=== PATIENT | male | born 1965 | race Caucasian/White ===

== ENCOUNTER 2017-03-02 21:25 | Emergency (ER) | payer SELFPAY ==
[~2017-03-02] VITALS: Ht 188 cm; Wt 115.0 kg
[2017-03-03 01:16] LABS: BASOPHILS # (AUTO) 0.03 K/uL (0.00-0.20); BASOPHILS % (AUTO) 0.5 % (0.0-2.0); EOSINOPHILS # (AUTO) 0.06 K/uL (0.00-0.70); EOSINOPHILS % (AUTO) 0.96 % (1.0-6.0); HEMATOCRIT 41.8 % (41-53); HEMOGLOBIN 14.2 g/dL (13.5-17.5); LYMPHOCYTES # (AUTO) 2.4 K/uL (1.0-4.8); MEAN CORPUSCULAR HEMOGLOBIN 31.2 pg (26.0-34.0); MEAN CORPUSCULAR VOLUME 92 fL (80-100); MONOCYTES # (AUTO) 0.6 K/uL (0.1-1.0); MONOCYTES % (AUTO) 8.9 % (2.0-9.0); NEUTROPHILS # (AUTO) 3.3 K/uL (1.8-7.7); NEUTROPHILS % (AUTO) 51.7 % (40.0-70.0); PLATELET COUNT (AUTO) 312 K/uL (150-450); RED BLOOD CELL COUNT(AUTO) 4.56 MIL/uL (4.50-5.90); RED CELL DISTRIBUTION WIDTH 12.8 % (11.5-14.5); WHITE BLOOD COUNT (AUTO) 6.4 K/uL (4.5-11.0)
[2017-03-03 01:24] LABS: ANION GAP 6 mmol/L (8-16); CALCIUM, TOTAL 9.3 mg/dL (8.8-10.5); CARBON DIOXIDE 28 mmol/L (22-29); CHLORIDE 100 mmol/L (98-107); CREATININE 0.77 mg/dL (0.60-1.30); GLOMERULAR FILTR. RATE CALC > 60 mL/min (>60); POTASSIUM 3.7 mmol/L (3.5-5.1); SODIUM SERUM 134 mmol/L (136-145); UREA NITROGEN, BLOOD 15 mg/dL (7-18)
[2017-03-03 01:34] LABS: ALANINE AMINOTRANSFERASE 33 U/L (12-78); ASPARTATE AMINOTRANSFERASE 26 U/L (15-37); BILIRUBIN,TOTAL 0.8 mg/dL (0.1-1.0); TOTAL PROTEIN, SERUM 7.2 g/dL (6.4-8.2)
[2017-03-03 03:13] VITALS: BP 119/70
== END 2017-03-03 03:32 | disposition home or self-care (01) ==
LOC: EMS 21:27
DX: F32.9 Major depressive disorder, single episode, unspecified (principal)
CPT/HCPCS: 36415; 80053; 80307; 85025; 99284; G0480

== ENCOUNTER 2017-03-03 15:55 | Emergency (ER) | payer MEDICARE ==
[~2017-03-03] VITALS: Ht 188 cm; Wt 113.6 kg
[2017-03-03 16:58] LABS: BASOPHILS # (AUTO) 0.07 K/uL (0.00-0.20); BASOPHILS % (AUTO) 1.1 % (0.0-2.0); EOSINOPHILS % (AUTO) 0 % (1.0-6.0); HEMATOCRIT 42.7 % (41-53); HEMOGLOBIN 14.4 g/dL (13.5-17.5); LYMPHOCYTES # (AUTO) 1.8 K/uL (1.0-4.8); LYMPHOCYTES % (AUTO) 28.5 % (22.0-44.0); MEAN CORPUSCULAR HEMOGLOBIN 29.7 pg (26.0-34.0); MEAN CORPUSCULAR HGB CONC 33.6 G/dL (31.0-37.0); MEAN CORPUSCULAR VOLUME 88 fL (80-100); MONOCYTES # (AUTO) 0.5 K/uL (0.1-1.0); MONOCYTES % (AUTO) 8.5 % (2.0-9.0); NEUTROPHILS # (AUTO) 3.8 K/uL (1.8-7.7); NEUTROPHILS % (AUTO) 61.9 % (40.0-70.0); PLATELET COUNT (AUTO) 186 K/uL (150-450); RED BLOOD CELL COUNT(AUTO) 4.83 MIL/uL (4.50-5.90); RED CELL DISTRIBUTION WIDTH 13.9 % (11.5-14.5)
[2017-03-03 17:13] LABS: ANION GAP 9 mmol/L (8-16); CALCIUM, TOTAL 9.3 mg/dL (8.8-10.5); CARBON DIOXIDE 23 mmol/L (22-29); CHLORIDE 106 mmol/L (98-107); CREATININE 1.09 mg/dL (0.60-1.30); GLOMERULAR FILTR. RATE CALC > 60 mL/min (>60); GLUCOSE,RANDOM 91 mg/dL (70-110); POTASSIUM 3.3 mmol/L (3.5-5.1); SODIUM SERUM 138 mmol/L (136-145); UREA NITROGEN, BLOOD 17 mg/dL (7-18)
[2017-03-03 17:20] LABS: ALANINE AMINOTRANSFERASE 17 U/L (12-78); ALBUMIN 4.3 g/dL (3.4-5.0); ALKALINE PHOSPHATASE 94 U/L (46-116); ASPARTATE AMINOTRANSFERASE 13 U/L (15-37); BILIRUBIN,TOTAL 0.8 mg/dL (0.1-1.0); TOTAL PROTEIN, SERUM 7.7 g/dL (6.4-8.2)
[2017-03-03] MEDS ORDERED: LORazepam 1 MG TABLET PO ONE (20:15)
[2017-03-03] MEDS ORDERED: POTASSIUM CHLORIDE 20 MEQ ER TABLET PO ONE (20:30)
[2017-03-03 21:04] VITALS: BP 121/63
== END 2017-03-03 21:06 | disposition home or self-care (01) ==
LOC: EMS 15:57
DX: F41.9 Anxiety disorder, unspecified (principal)
CPT/HCPCS: 36415; 80053; 85025; 99284; G0480

== ENCOUNTER 2017-03-31 12:38 | Inpatient (IN) | payer MEDICARE ==
[~2017-03-31] VITALS: Ht 188 cm; Wt 86.6 kg
[2017-03-31 16:25] VITALS: BP 119/75
[2017-03-31] MEDS ORDERED: ZOLPIDEM TARTRATE 10 MG TABLET PO PRN (16:45)
[2017-03-31] MEDS ORDERED: LORazepam 2 MG TABLET PO PRN (16:45)
[2017-03-31] MEDS ORDERED: QUEtiapine FUMARATE 100 MG TABLET PO PRN (16:45)
[2017-03-31] MEDS ORDERED: ASPI81 PO (16:55)
[2017-03-31] MEDS ORDERED: LORA10TA7 PO (16:55)
[2017-03-31] MEDS ORDERED: GEMF600T3 PO (16:55)
[2017-03-31] MEDS ORDERED: QUET100T PO (16:55)
[2017-03-31] MEDS ORDERED: METO50 PO (16:55)
[2017-03-31] MEDS ORDERED: CLOZ100 PO (16:55)
[2017-03-31] MEDS ORDERED: ESOM20CA31 PO (16:55)
[2017-03-31] MEDS ORDERED: DSS100 PO (16:55)
[2017-03-31] MEDS ORDERED: METOPROLOL TARTRATE 50 MG TABLET PO SCH (17:37)
[2017-03-31 18:12] VITALS: BP 127/85
[2017-03-31 18:13] VITALS: BP 127/85
[2017-03-31] MEDS ORDERED: INFLUENZA VIRUS VACCINE QVS 2017-18 (3YR+)/PF 60 MCG/0.5 ML SYRINGE IM ONE (18:30)
[2017-03-31] MEDS: QUEtiapine FUMARATE 100 MG TABLET PO SCH (18:31)
[2017-03-31] MEDS ORDERED: CloZAPine 100 MG TABLET PO ONE (21:00)
[2017-04-01 01:25] VITALS: BP 115/76
[2017-04-01] MEDS: GEMFIBROZIL 600 MG TABLET PO SCH ×2 (06:14→16:35)
[2017-04-01 08:40] VITALS: BP 138/72
[2017-04-01 08:49] LABS: BASOPHILS # (AUTO) 0.02 K/uL (0.00-0.20); BASOPHILS % (AUTO) 0.4 % (0.0-2.0); EOSINOPHILS % (AUTO) 0.04 % (1.0-6.0); HEMATOCRIT 42.9 % (41-53); HEMOGLOBIN 14.7 g/dL (13.5-17.5); LYMPHOCYTES # (AUTO) 1.2 K/uL (1.0-4.8); LYMPHOCYTES % (AUTO) 31.5 % (22.0-44.0); MEAN CORPUSCULAR HGB CONC 34.2 G/dL (31.0-37.0); MEAN CORPUSCULAR VOLUME 88 fL (80-100); MONOCYTES # (AUTO) 0.4 K/uL (0.1-1.0); MONOCYTES % (AUTO) 9.8 % (2.0-9.0); NEUTROPHILS # (AUTO) 2.3 K/uL (1.8-7.7); NEUTROPHILS % (AUTO) 58.3 % (40.0-70.0); PLATELET COUNT (AUTO) 179 K/uL (150-450); RED BLOOD CELL COUNT(AUTO) 4.89 MIL/uL (4.50-5.90); RED CELL DISTRIBUTION WIDTH 13.1 % (11.5-14.5); WHITE BLOOD COUNT (AUTO) 3.9 K/uL (4.5-11.0)
[2017-04-01] MEDS: ASPIRIN 81 MG CHEWABLE TABLET PO SCH (08:50)
[2017-04-01] MEDS: PANTOPRAZOLE SODIUM 40 MG DR TABLET PO SCH (08:50)
[2017-04-01] MEDS: METOPROLOL TARTRATE 50 MG TABLET PO SCH ×2 (08:50→16:34)
[2017-04-01] MEDS: DOCUSATE SODIUM 100 MG CAPSULE PO SCH (08:50)
[2017-04-01] MEDS: QUEtiapine FUMARATE 100 MG TABLET PO SCH ×2 (08:50→16:34)
[2017-04-01 09:09] LABS: ALANINE AMINOTRANSFERASE 17 U/L (12-78); ALBUMIN 3.6 g/dL (3.4-5.0); ANION GAP 14 mmol/L (8-16); ASPARTATE AMINOTRANSFERASE 14 U/L (15-37); BILIRUBIN,TOTAL 0.3 mg/dL (0.1-1.0); CALCIUM, TOTAL 8.6 mg/dL (8.8-10.5); CARBON DIOXIDE 21 mmol/L (22-29); CHLORIDE 105 mmol/L (98-107); CHOL/HDL RATIO 2.9 (4.2-7.3); CREATININE 0.86 mg/dL (0.60-1.30); GLOMERULAR FILTR. RATE CALC > 60 mL/min (>60); POTASSIUM 3.6 mmol/L (3.5-5.1); SODIUM SERUM 140 mmol/L (136-145); THYROID STIMULATING HORMONE 1.03 uIU/mL (0.36-3.74); TOTAL PROTEIN, SERUM 7.2 g/dL (6.4-8.2); UREA NITROGEN, BLOOD 17 mg/dL (7-18)
[2017-04-01 16:19] VITALS: BP 123/85
[2017-04-01] MEDS: CloZAPine 100 MG TABLET PO SCH (20:36)
[2017-04-02] MEDS: GEMFIBROZIL 600 MG TABLET PO SCH ×2 (06:24→16:32)
[2017-04-02 06:31] VITALS: BP 134/78
[2017-04-02 08:43] VITALS: BP 132/84
[2017-04-02] MEDS: QUEtiapine FUMARATE 100 MG TABLET PO SCH ×2 (09:02→16:33)
[2017-04-02] MEDS: METOPROLOL TARTRATE 50 MG TABLET PO SCH ×2 (09:02→16:33)
[2017-04-02] MEDS: DOCUSATE SODIUM 100 MG CAPSULE PO SCH (09:02)
[2017-04-02] MEDS: ASPIRIN 81 MG CHEWABLE TABLET PO SCH (09:03)
[2017-04-02] MEDS: PANTOPRAZOLE SODIUM 40 MG DR TABLET PO SCH (09:03)
[2017-04-02 16:09] VITALS: BP 130/87
[2017-04-02] MEDS: CloZAPine 100 MG TABLET PO SCH (20:52)
[2017-04-03] MEDS: GEMFIBROZIL 600 MG TABLET PO SCH ×2 (06:26→16:34)
[2017-04-03 06:33] VITALS: BP 107/70
[2017-04-03 08:40] VITALS: BP 110/78
[2017-04-03] MEDS: QUEtiapine FUMARATE 100 MG TABLET PO SCH ×2 (09:04→16:40)
[2017-04-03] MEDS: ASPIRIN 81 MG CHEWABLE TABLET PO SCH (09:04)
[2017-04-03] MEDS: METOPROLOL TARTRATE 50 MG TABLET PO SCH ×2 (09:04→16:40)
[2017-04-03] MEDS: DOCUSATE SODIUM 100 MG CAPSULE PO SCH (09:04)
[2017-04-03] MEDS: PANTOPRAZOLE SODIUM 40 MG DR TABLET PO SCH (09:04)
[2017-04-03 16:07] VITALS: BP 122/79
[2017-04-03] MEDS: CloZAPine 100 MG TABLET PO SCH (20:37)
[2017-04-04 04:48] VITALS: BP 133/81
[2017-04-04] MEDS: GEMFIBROZIL 600 MG TABLET PO SCH ×2 (06:35→16:27)
[2017-04-04] MEDS: DOCUSATE SODIUM 100 MG CAPSULE PO SCH (08:50)
[2017-04-04] MEDS: METOPROLOL TARTRATE 50 MG TABLET PO SCH ×2 (08:51→16:36)
[2017-04-04] MEDS: ASPIRIN 81 MG CHEWABLE TABLET PO SCH (08:51)
[2017-04-04] MEDS: QUEtiapine FUMARATE 100 MG TABLET PO SCH ×2 (08:51→16:36)
[2017-04-04] MEDS: PANTOPRAZOLE SODIUM 40 MG DR TABLET PO SCH (08:51)
[2017-04-04 09:04] VITALS: BP 127/89
[2017-04-04 16:28] VITALS: BP 125/80
[2017-04-04] MEDS: CloZAPine 100 MG TABLET PO SCH (20:36)
[2017-04-05 02:13] VITALS: BP 106/76
[2017-04-05] MEDS: GEMFIBROZIL 600 MG TABLET PO SCH ×2 (06:40→16:29)
[2017-04-05] MEDS: METOPROLOL TARTRATE 50 MG TABLET PO SCH ×2 (08:25→16:29)
[2017-04-05] MEDS: PANTOPRAZOLE SODIUM 40 MG DR TABLET PO SCH (08:25)
[2017-04-05] MEDS: ASPIRIN 81 MG CHEWABLE TABLET PO SCH (08:25)
[2017-04-05] MEDS: DOCUSATE SODIUM 100 MG CAPSULE PO SCH (08:25)
[2017-04-05] MEDS: QUEtiapine FUMARATE 100 MG TABLET PO SCH ×2 (08:25→16:29)
[2017-04-05 08:32] VITALS: BP 149/82
[2017-04-05 16:09] VITALS: BP 105/73
[2017-04-05 16:25] VITALS: BP 112/77
[2017-04-05 18:54] LABS: CLOZAPINE 198 ng/mL (350-650); CLOZAPINE & NORCLOZAPINE 272 ng/mL; NORCLOZAPINE 74 ng/mL (Not Estab.)
[2017-04-05] MEDS: CloZAPine 100 MG TABLET PO SCH (20:34)
[2017-04-06 00:30] VITALS: BP 116/71
[2017-04-06] MEDS: GEMFIBROZIL 600 MG TABLET PO SCH ×2 (06:45→16:34)
[2017-04-06 08:25] VITALS: BP 123/79
[2017-04-06] MEDS: DOCUSATE SODIUM 100 MG CAPSULE PO SCH (10:36)
[2017-04-06] MEDS: ASPIRIN 81 MG CHEWABLE TABLET PO SCH (10:36)
[2017-04-06] MEDS: PANTOPRAZOLE SODIUM 40 MG DR TABLET PO SCH (10:36)
[2017-04-06] MEDS: METOPROLOL TARTRATE 50 MG TABLET PO SCH ×2 (10:37→16:34)
[2017-04-06] MEDS: QUEtiapine FUMARATE 100 MG TABLET PO SCH ×2 (10:37→16:34)
[2017-04-06 16:05] VITALS: BP 122/85
[2017-04-06] MEDS: CloZAPine 100 MG TABLET PO SCH (20:45)
[2017-04-07 06:55] VITALS: BP 117/77
[2017-04-07] MEDS: GEMFIBROZIL 600 MG TABLET PO SCH ×2 (06:55→17:04)
[2017-04-07 08:36] VITALS: BP 117/76
[2017-04-07] MEDS: ASPIRIN 81 MG CHEWABLE TABLET PO SCH (09:02)
[2017-04-07] MEDS: PANTOPRAZOLE SODIUM 40 MG DR TABLET PO SCH (09:02)
[2017-04-07] MEDS: QUEtiapine FUMARATE 100 MG TABLET PO SCH ×2 (09:03→17:04)
[2017-04-07] MEDS: DOCUSATE SODIUM 100 MG CAPSULE PO SCH (09:03)
[2017-04-07] MEDS: METOPROLOL TARTRATE 50 MG TABLET PO SCH ×2 (09:03→17:04)
[2017-04-07 16:07] VITALS: BP 124/79
[2017-04-07] MEDS: CloZAPine 100 MG TABLET PO SCH (20:39)
[2017-04-08] MEDS: GEMFIBROZIL 600 MG TABLET PO SCH ×2 (06:38→16:27)
[2017-04-08 07:16] VITALS: BP 134/89
[2017-04-08 08:11] VITALS: BP 116/84
[2017-04-08] MEDS: DOCUSATE SODIUM 100 MG CAPSULE PO SCH (08:45)
[2017-04-08] MEDS: QUEtiapine FUMARATE 100 MG TABLET PO SCH ×2 (08:45→16:37)
[2017-04-08] MEDS: PANTOPRAZOLE SODIUM 40 MG DR TABLET PO SCH (08:45)
[2017-04-08] MEDS: ASPIRIN 81 MG CHEWABLE TABLET PO SCH (08:45)
[2017-04-08] MEDS: METOPROLOL TARTRATE 50 MG TABLET PO SCH ×2 (08:45→16:37)
[2017-04-08 16:40] VITALS: BP_SYST 118; BP_SYST 122; BP_DIAS 76
[2017-04-08] MEDS: CloZAPine 100 MG TABLET PO SCH (20:39)
[2017-04-09] MEDS: GEMFIBROZIL 600 MG TABLET PO SCH ×2 (06:00→16:36)
[2017-04-09 07:18] VITALS: BP 102/74
[2017-04-09 08:12] VITALS: BP 118/67
[2017-04-09] MEDS: ASPIRIN 81 MG CHEWABLE TABLET PO SCH (08:38)
[2017-04-09] MEDS: PANTOPRAZOLE SODIUM 40 MG DR TABLET PO SCH (08:38)
[2017-04-09] MEDS: METOPROLOL TARTRATE 50 MG TABLET PO SCH ×2 (08:38→16:36)
[2017-04-09] MEDS: QUEtiapine FUMARATE 100 MG TABLET PO SCH ×2 (08:38→16:36)
[2017-04-09] MEDS: DOCUSATE SODIUM 100 MG CAPSULE PO SCH (08:38)
[2017-04-09 16:11] VITALS: BP 112/69
[2017-04-09] MEDS: CloZAPine 100 MG TABLET PO SCH ×2 (21:00→22:26)
[2017-04-10 06:35] VITALS: BP 108/84
[2017-04-10] MEDS: GEMFIBROZIL 600 MG TABLET PO SCH ×2 (06:40→16:23)
[2017-04-10 07:39] LABS: BASOPHILS # (AUTO) 0.02 K/uL (0.00-0.20); BASOPHILS % (AUTO) 0.3 % (0.0-2.0); EOSINOPHILS % (AUTO) 0.02 % (1.0-6.0); HEMATOCRIT 45.7 % (41-53); HEMOGLOBIN 15.1 g/dL (13.5-17.5); LYMPHOCYTES # (AUTO) 1.9 K/uL (1.0-4.8); LYMPHOCYTES % (AUTO) 26.7 % (22.0-44.0); MEAN CORPUSCULAR HEMOGLOBIN 29.3 pg (26.0-34.0); MEAN CORPUSCULAR VOLUME 89 fL (80-100); MONOCYTES # (AUTO) 0.7 K/uL (0.1-1.0); MONOCYTES % (AUTO) 10.1 % (2.0-9.0); NEUTROPHILS # (AUTO) 4.4 K/uL (1.8-7.7); NEUTROPHILS % (AUTO) 62.9 % (40.0-70.0); PLATELET COUNT (AUTO) 183 K/uL (150-450); RED BLOOD CELL COUNT(AUTO) 5.14 MIL/uL (4.50-5.90); RED CELL DISTRIBUTION WIDTH 13.3 % (11.5-14.5)
[2017-04-10] MEDS: METOPROLOL TARTRATE 50 MG TABLET PO SCH ×2 (08:31→16:24)
[2017-04-10] MEDS: QUEtiapine FUMARATE 100 MG TABLET PO SCH ×2 (08:31→16:23)
[2017-04-10] MEDS: DOCUSATE SODIUM 100 MG CAPSULE PO SCH (08:31)
[2017-04-10] MEDS: ASPIRIN 81 MG CHEWABLE TABLET PO SCH (08:31)
[2017-04-10] MEDS: PANTOPRAZOLE SODIUM 40 MG DR TABLET PO SCH (08:31)
[2017-04-10 08:37] VITALS: BP 122/80
[2017-04-10 16:09] VITALS: BP 118/81
[2017-04-10] MEDS: CloZAPine 100 MG TABLET PO SCH (20:47)
[2017-04-11] MEDS: GEMFIBROZIL 600 MG TABLET PO SCH ×2 (06:34→16:37)
[2017-04-11 08:46] VITALS: BP 145/81
[2017-04-11 08:55] VITALS: BP 130/63
[2017-04-11] MEDS: METOPROLOL TARTRATE 50 MG TABLET PO SCH ×2 (09:17→16:37)
[2017-04-11] MEDS: QUEtiapine FUMARATE 100 MG TABLET PO SCH ×2 (09:17→16:37)
[2017-04-11] MEDS: DOCUSATE SODIUM 100 MG CAPSULE PO SCH (09:17)
[2017-04-11] MEDS: PANTOPRAZOLE SODIUM 40 MG DR TABLET PO SCH (09:17)
[2017-04-11] MEDS: ASPIRIN 81 MG CHEWABLE TABLET PO SCH (09:17)
[2017-04-11 16:16] VITALS: BP 116/84
[2017-04-11] MEDS: CloZAPine 100 MG TABLET PO SCH (20:32)
[2017-04-12 06:31] VITALS: BP 121/67
[2017-04-12] MEDS: GEMFIBROZIL 600 MG TABLET PO SCH ×2 (06:51→16:36)
[2017-04-12 08:49] VITALS: BP 118/86
[2017-04-12] MEDS: QUEtiapine FUMARATE 100 MG TABLET PO SCH ×2 (09:08→16:36)
[2017-04-12] MEDS: PANTOPRAZOLE SODIUM 40 MG DR TABLET PO SCH (09:08)
[2017-04-12] MEDS: DOCUSATE SODIUM 100 MG CAPSULE PO SCH (09:08)
[2017-04-12] MEDS: ASPIRIN 81 MG CHEWABLE TABLET PO SCH (09:08)
[2017-04-12] MEDS: METOPROLOL TARTRATE 50 MG TABLET PO SCH ×2 (09:08→16:36)
[2017-04-12 16:20] VITALS: BP 120/74
[2017-04-12] MEDS: CloZAPine 100 MG TABLET PO SCH (20:38)
[2017-04-13 02:42] VITALS: BP 122/72
[2017-04-13] MEDS: GEMFIBROZIL 600 MG TABLET PO SCH ×2 (06:55→16:31)
[2017-04-13 08:00] VITALS: BP 127/74
[2017-04-13] MEDS: METOPROLOL TARTRATE 50 MG TABLET PO SCH ×2 (09:00→16:31)
[2017-04-13] MEDS: ASPIRIN 81 MG CHEWABLE TABLET PO SCH (09:00)
[2017-04-13] MEDS: PANTOPRAZOLE SODIUM 40 MG DR TABLET PO SCH (09:00)
[2017-04-13] MEDS: DOCUSATE SODIUM 100 MG CAPSULE PO SCH (09:00)
[2017-04-13] MEDS: QUEtiapine FUMARATE 100 MG TABLET PO SCH ×2 (09:00→16:31)
[2017-04-13 16:03] VITALS: BP 121/75
[2017-04-13] MEDS: CloZAPine 100 MG TABLET PO SCH (20:35)
[2017-04-14] MEDS: GEMFIBROZIL 600 MG TABLET PO SCH ×2 (06:12→16:36)
[2017-04-14 08:28] VITALS: BP 133/83
[2017-04-14] MEDS: QUEtiapine FUMARATE 100 MG TABLET PO SCH ×2 (08:38→16:36)
[2017-04-14] MEDS: ASPIRIN 81 MG CHEWABLE TABLET PO SCH (08:38)
[2017-04-14] MEDS: METOPROLOL TARTRATE 50 MG TABLET PO SCH ×2 (08:39→16:36)
[2017-04-14] MEDS: PANTOPRAZOLE SODIUM 40 MG DR TABLET PO SCH (08:39)
[2017-04-14] MEDS: DOCUSATE SODIUM 100 MG CAPSULE PO SCH (08:39)
[2017-04-14 16:07] VITALS: BP 112/76
[2017-04-14] MEDS: CloZAPine 100 MG TABLET PO SCH (20:34)
[2017-04-15 02:25] VITALS: BP 110/68
[2017-04-15] MEDS: GEMFIBROZIL 600 MG TABLET PO SCH (06:42)
[2017-04-15 08:12] VITALS: BP 107/72
[2017-04-15] MEDS ORDERED: PANT40TA25 PO (08:41)
[2017-04-15] MEDS: ASPIRIN 81 MG CHEWABLE TABLET PO SCH (08:49)
[2017-04-15 08:50] VITALS: BP 115/78
[2017-04-15] MEDS: PANTOPRAZOLE SODIUM 40 MG DR TABLET PO SCH (08:50)
[2017-04-15] MEDS: QUEtiapine FUMARATE 100 MG TABLET PO SCH (08:50)
[2017-04-15] MEDS: METOPROLOL TARTRATE 50 MG TABLET PO SCH (08:50)
[2017-04-15] MEDS: DOCUSATE SODIUM 100 MG CAPSULE PO SCH (09:05)
== END 2017-04-15 10:10 | disposition home or self-care (01) | DRG 885 ==
LOC: B2X 17:11
DX: F25.1 Schizoaffective disorder, depressive type (principal); D72.819 Decreased white blood cell count, unspecified; E78.00 Pure hypercholesterolemia, unspecified; E87.6 Hypokalemia; F40.10 Social phobia, unspecified; I10 Essential (primary) hypertension; J30.9 Allergic rhinitis, unspecified; K21.9 Gastro-esophageal reflux disease without esophagitis; K59.00 Constipation, unspecified; Z79.899 Other long term (current) drug therapy
CPT/HCPCS: 80159; 84439; 84443